=== PATIENT | male | born 1990 | race Hispanic/Latino ===

== ENCOUNTER 2017-12-17 17:04 | Emergency (ER) | payer OTHER ==
[2017-12-17 17:16] VITALS: BP 129/69; PULSE 98; RESP 16; O2SAT 97
[2017-12-17] MEDS ORDERED: Tdap Vaccine 0.5 ml Vial (10-64 yrs) IM ONE ×2 (17:25→17:34)
[2017-12-17] MEDS ORDERED: Lidocaine 1% Inj (20ml) IJ STA (17:39)
[2017-12-17] MEDS ORDERED: Lidocaine 1% Inj (20ml) ONE (17:48)
--- NOTE | 2017-12-17 18:07 | ED PDOC ---
HPI: Wound Care - HPI Time Seen by Provider: 12/17/17 17:16 Chief Complaint (Nursing): Abnormal Skin Integrity Chief Complaint (Provider): Finger Laceration History Per: Patient Exam Limitations: no limitations Onset/Duration Of Symptoms: Hrs Additional Complaint(s): 27-year-old male presents to ED for evaluation of laceration to left 2nd digit. Patient states he was opening a beer bottle with another beer bottle when one of the bottles broke, cutting his finger. Patient states prior to arrival, he removed a shard of glass from laceration site and currently denies FB sensation. Patient is right hand dominant. Patient states he cannot recall his last tetanus vaccine. No other complaints at present. PMD: Cannot recall name, located in [employer] [place] Past Medical History Reviewed: Historical Data, Nursing Documentation, Vital Signs Vital Signs: Last Vital Signs Temp 98.6 F 12/17/17 17:10 Pulse 98 H 12/17/17 17:10 Resp 16 12/17/17 17:10 BP 129/69 12/17/17 17:10 Pulse Ox 97 12/17/17 17:10 - Medical History PMH: No Chronic Diseases - Surgical History Surgical History: No Surg Hx - Family History Family History: States: Unknown Family Hx - Social History Current smoker - smoking cessation education provided: Yes (Socially) Alcohol: Social Drugs: Denies - Home Medications Home Medications: Ambulatory Orders Medication Instructions Recorded Bacitracin Ointment [Bacitracin] 1 applic TOP BID #1 tube 12/17/17 - Allergies Allergies/Adverse Reactions: Allergies Allergy/AdvReac Type Severity Reaction Status Date / Time No Known Allergies Allergy Verified 12/17/17 17:10 Review of Systems ROS Statement: Except As Marked, All Systems Reviewed And Found Negative Musculoskeletal: Positive for: Other (Left 2nd digit laceration) Physical Exam - Reviewed Nursing Documentation Reviewed: Yes Vital Signs Reviewed: Yes - Physical Exam Appears: Positive for: Well (Resting comfortably), Non-toxic, No Acute Distress Head Exam: Positive for: NORMOCEPHALIC Skin: Positive for: Normal Color, Warm Eye Exam: Positive for: EOMI, PERRL ENT: Positive for: Other (Mucus membranes moist. Airway patent (-) stridor. ) Neck: Positive for: Painless ROM, Supple Cardiovascular/Chest: Positive for: Regular Rate, Rhythm Respiratory: Positive for: Normal Breath Sounds. Negative for: Respiratory Distress Neurologic/Psych: Positive for: Alert, Oriented (x3), Gait (steady in ED). Negative for: Aphasia, Facial Droop Comments: L 2nd Digit (+) 1.5 cm L-shaped laceration to the distal palmar aspect of left 2nd digit, (+ ) Full ROM of digit, (+) Neurovascularly intact, (-) foreign body visualized (- ) active bleeding (-) swelling (-) ecchymosis or erythema. Tendon function tested and intact. Remainder of extremity(-) tenderness with FROM. - ECG O2 Sat by Pulse Oximetry: 97 (RA) Pulse Ox Interpretation: Normal - Radiology X-Ray: Interpreted by Me, Viewed By Me X-Ray Interpretation: No Acute Disease, Other (No FB identified) Procedure: Wound Repair - Location Location:: Volar, Distal Finger:: Left, Index Shape:: Other (L shaped) Dimensions Length cm: 1.5cm Depth:: Epidermis - Anesthetic Technique Anesthetic Technique: Local Local/Regional Anesthetic:: Lidocaine 1% (3mL) - Debris Debris:: None - Irrigated Irrigated with ml of normal saline: 150cc - Complexity Complexity:: Simple (one layer) - Wound repair method Sutures:: # (4), Size (5-0), Type (ethilon), Technique (simple interrupted) - Patient tolerated procedure Patient Tolerated Procedure:: Well Medical Decision Making Medical Decision Making: Time: 17:25 Impression: Finger Laceration Plan: - Adacel (10-64 yrs) 0.5 ml IM - Lidocaine 1% (20) ml 5 ml INJ STAT - Left Hand X-Ray - Laceration Repair - Re-evaluation 1834 XR reviewed: (-) fracture (-) FB visualized. Patient advised that official radiology read of XR is still pending and will call the patient if there is any discrepancy within 24 hours. 1840 Laceration repair performed by Bess MAYFIELD. See procedure note. Patient tolerated procedure well. 1900 On re-evaluation, patient reports improvement of symptoms. On exam, patient remains AAOx3, in no acute distress. On exam, neck is supple, lungs CTA, cardiac RRR, abdomen is soft and non-tender, neuro exam shows no focal findings. Educated on wound care. Advised suture removal in 7 days. VSS, stable for discharge. Diagnostic results d/w the patient in great detail. Dx of finger laceration d/w the patient. Based on history, exam and diagnostic results plan will be for discharge and outpatient follow up. Suture removal 12/24/17. Advised to follow up with primary care physician in 1-2 days without fail for wound check. Advised to take medication as prescribed. Return to the emergency room at any time for any new or worsening symptoms. Patient states he fully agrees with and understands discharge instructions. States that he agrees with the plan and disposition. Verbalized and repeated discharge instructions and plan. I have given the patient opportunity to ask any additional questions. Scribe Attestation: Documented by Colton Alexander, acting as a scribe for Charlotte Kellogg PA-C. Provider Scribe Attestation: All medical record entries made by the Scribe were at my direction and personally dictated by me. I have reviewed the chart and agree that the record accurately reflects my personal performance of the history, physical exam, medical decision making, and the department course for this patient. I have also personally directed, reviewed, and agree with the discharge instructions and disposition. Disposition - Clinical Impression Clinical Impression: Finger laceration - Patient ED Disposition Is Patient to be Admitted: No Counseled Patient/Family Regarding: Studies Performed, Diagnosis, Need For Followup, Rx Given - Disposition Disposition: Routine/Home Disposition Time: 19:00 Condition: STABLE Additional Instructions: FOLLOW UP WITH PMD IN 1-2 DAYS FOR WOUND CHECK AND IN 7 DAYS FOR SUTURE REMOVAL. KEEP WOUND CLEAN AND DRY. RETURN TO ED WITH ANY NEW OR WORSENING SYMPTOMS. Prescriptions: Bacitracin Ointment [Bacitracin] 1 applic TOP BID #1 tube Instructions: Laceration Repair, Laceration Repair With Stitches (DC), Common Finger Injuries Forms: [facility] (Surinamese) Print Language: DUTCH - POA Present On Arrival: Falls Or Trauma
[2017-12-17] MEDS ORDERED: Povidone Iodine Topical 10% Sol ONE (18:32)
[2017-12-17 19:17] VITALS: TEMP 98.3
--- NOTE | 2017-12-18 07:59 | RAD ---
PROCEDURE: Left Hand Radiographs. HISTORY: r/o foreign body COMPARISON: None. FINDINGS: BONES: Normal. No fracture. JOINTS: Normal. No osteoarthritic changes. SOFT TISSUES: Normal. OTHER FINDINGS: None. IMPRESSION: Normal left hand radiographs.
== END 2017-12-17 19:16 | disposition home or self-care (01) ==
LOC: H.ER 17:04
DX: S61.201A Unspecified open wound of left index finger without damage to nail, initial encounter (principal); W26.8XXA Contact with other sharp object(s), not elsewhere classified, initial encounter; Y92.89 Other specified places as the place of occurrence of the external cause